=== PATIENT | male | born 1955 | race Caucasian/White ===

== ENCOUNTER 2019-08-27 14:28 | Emergency (ER) | payer OTHER, SELFPAY ==
[2019-08-27 14:39] VITALS: BP 130/69; PULSE 81; RESP 18; TEMP 36.2; O2SAT 94; BMI 35.5
--- NOTE | 2019-08-27 14:57 | ED_ITS ---
HPI - Wound/Laceration General: Chief Complaint: Wound/Laceration Stated Complaint: hand lac Time Seen by Provider: 08/27/19 14:57 History of Present Illness: HPI narrative: Patient is a 64-year-old male who comes to the ED with a laceration to the left hand. Injury occurred just prior to arrival. Patient says he got his left hand caught in his mincemeat maker and it cut the top side of his hand. Patient says he had a hard time getting the bleeding slowed down but was finally able to stop the bleeding by pressure with gauze. He is able to move his hand and fingers and has feeling throughout his hand. Patient is unsure of his last tetanus shot. Associated symptoms: Denies chills, fever(s), nausea or vomiting Review of Systems Const: Denies: fever, chills or fatigue Eyes: Denies: change in vision or eye discomfort ENMT: Denies: throat pain, painful swallowing, nasal discharge or nasal congestion Card: Denies: chest pain, palpitations, edema, swelling of feet/ankles, shortness of breath on exertion or shortness of breath when lying down Resp: Denies: shortness of breath, productive cough or non-productive cough GI: Denies: abdominal pain, nausea, vomiting, diarrhea, constipation or blood in stool : Denies: flank pain, difficulty urinating, painful urination or blood in urine Musc: Denies: neck pain, back pain or extremity swelling Skin/Breast: Reports: skin tenderness (around laceration site) and new lesion (left hand laceration); Denies: rash Neuro: Denies: headache, numbness in extremities or weakness in extremities [facility] PFSH: Social History Smoking and tobacco status: never smoked Physical Exam Const: COMMON NORMALS: oriented x3 HENMT: COMMON NORMALS: normocephalic HEAD & SCALP: normocephalic MOUTH: oral and palatal mucosa normal THROAT: posterior oropharynx normal and uvula midline Neck/C-Spine: COMMON NORMALS: supple GENERAL: Yes normal visual inspection Resp: COMMON NORMALS: normal respiratory effort, no retractions, no use of accessory muscles and clear to auscultation bilaterally AUSCULTATION: clear to auscultation bilaterally Cardio: COMMON NORMALS: regular rate, regular rhythm, S1 normal heart sound, S2 normal heart sound, no gallops, no clicks, no murmurs and peripheral pulses 2+ throughout RATE: regular rate RHYTHM: regular rhythm HEART SOUNDS: S1 normal and S2 normal PERIPHERAL PULSES: pulses 2+ throughout GI: COMMON NORMALS: normal to inspection, nondistended, normoactive bowel sounds, soft to palpation, non-tender and no masses PALPATION: Yes soft : COMMON NORMALS: Yes no CVA tenderness BLADDER/KIDNEY EXAM: Yes no CVA tenderness Back/Pelvis: COMMON NORMALS: no CVA tenderness Extremity: GENERAL: Yes normal exam except as noted LEFT UPPER EXTREMITY: Yes hand & digits Left hand and digits: Yes inspection (4 cm laceration on dorsal side of hand.), Yes palpation (area around lac tender), Yes ROM (normal), Yes neurovascular exam (intact) and Yes tendon exam (all digits and wrist movements were normal.) Neuro: COMMON NORMALS: oriented x3 and moves all extremities Skin: GENERAL SKIN EXAM: dry skin TRAUMA: laceration (approx 4cm long) linear, involves subcutaneous tissue, motor nerve function intact and sensation intact; not actively bleeding Procedures Laceration Laceration 1: Site: hand Side (If applicable): left Size (cm): 4 Description: linear Depth: simple, single layer Local Anesthetic: lidocaine 1% and with epi Amount of anesthesia used (mL): 10 Pre-repair: irrigated extensively (w/ normal saline and then cleaned skin with chg swab) Skin layer closed with: nylon Size (cm): 3-0 Number of sutures: 8 Technique: simple, interrupted Course Vital Signs: Vital signs: Vital Signs Temperature 97.1 F L 08/27/19 14:39 Pulse Rate 79 08/27/19 16:38 Respiratory Rate 18 08/27/19 16:38 Blood Pressure 118/80 08/27/19 16:38 Pulse Oximetry 94 08/27/19 16:38 MDM - Wound/Laceration MDM Narrative: Medical decision making narrative: Patient is a 64-year-old male who comes into the ED with a laceration to the left hand. X-ray was performed and showed no bone abnormality or foreign body. Laceration site was irrigated extensively with normal saline and then cleaned with iodine swab. Local lidocaine 1% with epi was used to numb area before sutures placed. Laceration was closed with sutures (see procedure notes for det ails). Patient was given a Tdap shot while here in the ED. He was sent home with a prescription for Bactrim and told to take full course of antibiotic. He was told to keep the laceration site dry for the next 48 hours, then he can clean the laceration site with a warm soapy rag daily and apply new bandage daily. Have sutures removed in 7 to 10 days at PCP, urgent care or the ED. I informed patient of signs of infection such as warmth, redness and drainage around laceration site. take ibuprofen or Tylenol for pain. Patient understood and agreed with plan. Imaging Data^: Xray Ortho: Attestation: I personally reviewed and interpreted this imaging study as follows: Radiologist's impression: [address] [address] XRay Report Signed Patient: Car Perez Unit #: [id number] : 1955 Age/Sex: 64 / M ADM Date: 08/26 Loc: ER Room/Bed: Attending Dr: Ordering Provider/Ordering MD: Krzysztof Butcher Date of Service: 08/27/19 Procedure(s): XR hand LT min 3V* [id number] Accession Number(s): [id number] Report Number: [id number] WS: [id number] LEFT HAND: 3 VIEW(S) TECHNIQUE: PA, oblique and lateral. HISTORY: hand injury with deep laceration COMPARISON: None available. No acute fracture or dislocation. Soft tissue injury along the dorsal surface of the hand. No foreign body or cate ne abnormality. XR/XR hand LT min 3V* [id number] IMPRESSION: Soft tissue injury with no bone abnormality or foreign body. Dictated By: Sia Kent DO Signed By: Sia Kent DO Signed Date/Time: 08/27/19 160 DD/ 160 Discharge Plan Discharge Patient Disposition: Home, Self-Care Clinical Impression: Laceration Condition: Stable Prescriptions: New sulfamethoxazole-trimethoprim 800-160 mg tablet 1 tab PO BID 7 Days Qty: 14 RF: 0 Discharge Orders: Discharge Order (Routine); Ordered 08/27/19 Ordered By: Krzysztof Butcher Discharge Diet: Regular Discharge Activity: Limit activity as instructed Patient Instructions: Laceration (ED) Activity Restrictions/Additional Instructions: Follow-up with your PCP, urgent care or return to ED in 7 to 10 days to get sutures removed. Keep laceration area dry for the next 48 hours. After 48 hours you can clean laceration site with warm soapy water and rag and change bandage daily. Take full course of antibiotics as prescribed. You can take [id number] ibuprofen or Tylenol for pain. Watch for signs of infection such as redness, warmth or drainage around laceration site. Discharge Date/Time: 08/27/19 16:39 Coding Level of Care Code ED [employer] Developer for Farrah Benson Exam Comprehensive
[2019-08-27 14:59] VITALS: BP 131/79; PULSE 75; RESP 16; O2SAT 94
--- NOTE | 2019-08-27 15:16 | XR_ITS ---
WS: [id number] LEFT HAND: 3 VIEW(S) TECHNIQUE: PA, oblique and lateral. HISTORY: hand injury with deep laceration COMPARISON: None available. No acute fracture or dislocation. Soft tissue injury along the dorsal surface of the hand. No foreign body or bone abnormality. XR/XR hand LT min 3V* [id number] IMPRESSION: Soft tissue injury with no bone abnormality or foreign body.
[2019-08-27] MEDS: HYDROcodone-acetaminophen 7.5-325 mg Tablet 1 TAB PO (15:35)
[2019-08-27] MEDS: tetanus-dipt-pertussis 0.5 mL SDV IM (15:36)
[2019-08-27] MEDS: sulfamethoxazole-trimeth DS 160-800 mg Tablet 1 TAB PO (16:37)
[2019-08-27 16:38] VITALS: BP 118/80; PULSE 79; RESP 18; O2SAT 94
--- NOTE | 2019-09-09 14:23 | PC.NURSE ---
Pt returned for suture removal. 8 sutures removed from left hand. Instructed to keep wound dry.
== END 2019-08-27 16:39 | disposition home or self-care (01) ==
PROVIDERS: Emergency Provider Physician Assistant
DX: S61.412A Laceration without foreign body of left hand, initial encounter (principal); W23.0XXA Caught, crushed, jammed, or pinched between moving objects, initial encounter; Z23 Encounter for immunization
CPT/HCPCS: 12002; 12345; 73130; 90471; 90715; 99281; 99283; J2001